=== PATIENT | male | born 1955 ===

== ENCOUNTER 2018-09-22 00:07 | Day surgery (SDC) | payer OTHER ==
[~2018-09-22] VITALS: Ht 182.9 cm; Wt 83.9 kg
[~2018-09-22 00:07] MED LIST: LEVO137T22 PO; LOR5 PO
[2018-09-22 07:49] VITALS: BP 139/79
[2018-09-22] MEDS ORDERED: LIDOCAINE/SOD BICARB 8.4% SYR ID ONE (07:55)
[2018-09-22] MEDS ORDERED: NORMOSOL R SOLN(*) 1000 ML BAG 1,000 ML IV PRN (07:55)
[2018-09-22 09:13] VITALS: BP 109/68
[2018-09-22 09:30] VITALS: BP 115/73
[2018-09-22 10:00] VITALS: BP 105/44
[2018-09-22 10:14] VITALS: BP 129/79
[2018-09-22 10:16] VITALS: BP 141/73
--- NOTE | 2018-09-22 10:48 | NUR ---
0913 PT ARRIVED TO [place] VIA CART, VSS, CM, RESTING IN L LAT POSITION 0925 DOWN TO RA 0930 VSS, PT STILL RESTING COMFORTABLY, VERY CM, LOW 40S, 100% ON RA 0955 DR. PATRCIIO AT BEDSIDE, CALLED FOR RIDE, PT TOLERATING CHEESE, CRACKERS, AND WATER 1000 VSS, PT UP IN SF 1014 PT READY TO GET DRESSED, ORTHOSTATICS DONE, STABLE. D/C FROM IV TUBING, ALLOWED TO DRESS 1020 REASSESSED, IV OUT, D/C INSTRUCTIONS COVERED WITH PT AND . ALL QUESTIONS ANSWERED. PT OUT BY FOOT TO CAR OUTSIDE OF ADMITTING ENTRANCE. ALL BELONGINGS WITH PT.
[2018-09-22] MEDS ORDERED: PROPOFOL(*)1000 MG/100 ML VIAL 100 ML ONE (12:27)
== END 2018-09-22 10:30 | disposition home or self-care (01) ==
LOC: OR 00:07
PROVIDERS: ATTEND Family Medicine
DX: Z12.11 Encounter for screening for malignant neoplasm of colon (principal)
CPT/HCPCS: 00811; 45378; J2704